=== PATIENT | male | born 1945 | race African-American/Black ===

== ENCOUNTER 2024-05-10 08:31 | Day surgery (SDC) | payer OTHER ==
[2024-05-07 13:04] VITALS: BMI 31.4
[2024-05-10 11:48] VITALS: RESP 16; TEMP 97
[2024-05-10 12:12] VITALS: BP 143/75; PULSE 81
== END 2024-05-10 12:30 | disposition home or self-care (01) ==
LOC: FASU-ENDO 08:31
PROVIDERS: ATTEND Internal Medicine Gastroenterology
PROC: 0D598ZZ Destruction of Duodenum, Via Natural or Artificial Opening Endoscopic (ICD-10-PCS; 2024-05-10)
PROC: 0D568ZZ Destruction of Stomach, Via Natural or Artificial Opening Endoscopic (ICD-10-PCS; 2024-05-10)
PROC: 0DB68ZX Excision of Stomach, Via Natural or Artificial Opening Endoscopic, Diagnostic (ICD-10-PCS; 2024-05-10)
PROC: 0DJD8ZZ Inspection of Lower Intestinal Tract, Via Natural or Artificial Opening Endoscopic (ICD-10-PCS; principal; 2024-05-10 10:49)
DX: Z12.11 Encounter for screening for malignant neoplasm of colon (principal); K55.20 Angiodysplasia of colon without hemorrhage; D64.9 Anemia, unspecified
CPT/HCPCS: 82962; 88305-TC; 88342-TC